=== PATIENT | female | born 2000 | race Caucasian/White ===

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

== ENCOUNTER 2018-04-19 15:14 | Emergency (ER) | payer OTHER ==
[~2018-04-19] VITALS: Ht 160 cm; Wt 90.7 kg
[~2018-04-19 15:14] MED LIST changes: +ZOFRAN4 MG PO
[2018-04-19 15:38] LABS: URINE BILIRUBIN NEGATIVE (Negative); URINE BLOOD 1+ (Negative); URINE CLARITY CLEAR; URINE COLOR YELLOW; URINE GLUCOSE-RANDOM NEGATIVE (Negative); URINE KETONES NEGATIVE (Negative); URINE LEUKOCYTES-REFLEX NEGATIVE (Negative); URINE NITRITE-REFLEX NEGATIVE (Negative); URINE PROTEIN NEGATIVE (Negative); URINE SPECIFIC GRAVITY >= 1.030 (1.005-1.030); URINE UROBILINOGEN 0.2 E.U./dl (0.2-1.0)
[2018-04-19 15:41] LABS: SQUAMOUS >10 Many /LPF (0-3); URINE WBC-REFLEX None Seen /HPF (0-5)
[2018-04-19 15:42] LABS: BACTERIA-REFLEX 1-9 Few /HPF (None Seen); CASTS None Seen /LPF (None Seen); CRYSTALS None Seen /LPF (None Seen); URINE RBC 3-10 Few /HPF (0-2)
[2018-04-19] MEDS ORDERED: NEXIUM40 MG PO (15:47)
[2018-04-19] MEDS ORDERED: BIRTH CONTROL PILL (15:47)
[2018-04-19 16:06] LABS: ABSOLUTE BASOPHILS 0.1 thou/uL (0.0-0.2); ABSOLUTE EOSINOPHILS 0.1 thou/uL (0.0-0.7); ABSOLUTE LYMPHOCYTES 1.5 thou/uL (0.8-5.3); ABSOLUTE MONOCYTES 0.8 thou/uL (0.0-1.2); ABSOLUTE NEUTROPHILS 8.2 thou/uL (1.6-8.1); BASOPHILS 0.5 %; EOSINOPHILS 0.7 %; HEMATOCRIT 36.1 % (37.0-47.0); HEMOGLOBIN 12.4 gm/dL (12.0-15.0); LYMPHOCYTES 14.3 %; MCHC 34.5 g/dL (28.0-37.0); MONOCYTES 7.2 %; MPV 7.6 fl. (7.2-11.1); NUCLEATED RBCS 0 /100WBC; PLATELET COUNT* 234 thou/uL (150-400); POLYS 77.3 %; RBC 4.15 mil/uL (4.20-5.00); RDW-CV 12.3 % (10.5-14.5); WBC 10.5 thou/uL (4.0-11.0)
[2018-04-19 16:13] LABS: CALCIUM 8.8 mg/dL (8.5-10.1); CREATININE 1.2 mg/dL (0.6-1.3); POTASSIUM 3.9 mmol/L (3.5-5.1)
[2018-04-19 16:17] LABS: ALBUMIN 3.4 g/dL (3.4-5.0); TOTAL BILIRUBIN 0.3 mg/dL (<0.1-1.0); TOTAL PROTEIN 7.1 g/dL (6.4-8.2)
[2018-04-19] MEDS ORDERED: ZOFRAN4 MG PO (17:54)
[2018-04-19] MEDS ORDERED: ACETAMINOPHEN-1 EAC1 PO (17:54)
[2018-04-19 18:32] VITALS: BP 131/80
== END 2018-04-19 18:33 | disposition home or self-care (01) ==
LOC: M.ERS 15:14
PROVIDERS: Nurse Practitioner Family
DX: N20.1 Calculus of ureter (principal); F32.9 Major depressive disorder, single episode, unspecified; F41.9 Anxiety disorder, unspecified; Z88.8 Allergy status to other drugs, medicaments and biological substances

== ENCOUNTER → 2018-11-28 | Outpatient (CLI) | payer OTHER ==
[~2018-11-28] MED LIST changes: +ACETAMINOPHEN-1 EAC1 PO; +BIRTH CONTROL PILL; +NEXIUM40 MG PO
== END ==
LOC: M.CT 13:05
DX: N20.0 Calculus of kidney (principal); N39.0 Urinary tract infection, site not specified; F32.9 Major depressive disorder, single episode, unspecified; F42.9 Obsessive-compulsive disorder, unspecified; Z68.35 Body mass index [BMI] 35.0-35.9, adult

== ENCOUNTER 2019-03-26 12:43 | Emergency (ER) | payer OTHER ==
[~2019-03-26] VITALS: Ht 160 cm; Wt 86.2 kg
[~2019-03-26 12:43] MED LIST changes: -LAMICTAL100 MG; +LAMICTAL100 MG PO; -PROZAC40 MG; +PROZAC40 MG PO; -UNICOMPLEX M TA1 TA1; +UNICOMPLEX M TA1 TA1 PO
[2019-03-26 13:03] LABS: URINE BLOOD 3+ (Negative); URINE CLARITY SL CLOUDY; URINE COLOR YELLOW; URINE GLUCOSE-RANDOM NEGATIVE (Negative); URINE KETONES NEGATIVE (Negative); URINE LEUKOCYTES-REFLEX NEGATIVE (Negative); URINE NITRITE-REFLEX NEGATIVE (Negative); URINE PROTEIN 1+ (Negative); URINE SPECIFIC GRAVITY 1.025 (1.005-1.030); URINE UROBILINOGEN 0.2 E.U./dl (0.2-1.0)
[2019-03-26 13:14] LABS: ICTOTEST (BILI CONFIRMATORY) Negative (Negative); URINE BILIRUBIN 1+ (Negative)
[2019-03-26 13:15] LABS: SQUAMOUS >10 Many /LPF (0-3); URINE WBC-REFLEX 0-5 Rare /HPF (0-5)
[2019-03-26 13:16] LABS: CASTS None Seen /LPF (None Seen); CRYSTALS None Seen /LPF (None Seen); MUCUS 4-6 Moderate strn/LPF (None Seen); URINE RBC >20 Many /HPF (0-2)
[2019-03-26 13:19] LABS: ABSOLUTE LYMPHOCYTES 0.9 thou/uL (0.8-5.3); ABSOLUTE MONOCYTES 0.5 thou/uL (0.0-1.2); ABSOLUTE NEUTROPHILS 7.1 thou/uL (1.6-8.1); BASOPHILS 0.2 %; EOSINOPHILS 0.5 %; HEMATOCRIT 36.7 % (37.0-47.0); HEMOGLOBIN 12.7 gm/dL (12.0-15.0); LYMPHOCYTES 10.1 %; MCH 29.5 pg (26.0-34.0); MCHC 34.8 g/dL (28.0-37.0); MCV 84.8 fL (80.0-100.0); MPV 7.3 fl. (7.2-11.1); NUCLEATED RBCS 0 /100WBC; PLATELET COUNT* 254 thou/uL (150-400); POLYS 83.2 %; RBC 4.32 mil/uL (4.20-5.00); RDW-CV 13.4 % (10.5-14.5); WBC 8.5 thou/uL (4.0-11.0)
[2019-03-26 13:25] LABS: CREATININE 0.9 mg/dL (0.6-1.3); POTASSIUM 3.9 mmol/L (3.5-5.1)
[2019-03-26 13:30] LABS: ALBUMIN 3.5 g/dL (3.4-5.0); TOTAL BILIRUBIN 0.4 mg/dL (<0.1-1.0); TOTAL PROTEIN 7.4 g/dL (6.4-8.2)
[2019-03-26] MEDS ORDERED: BENTYL 20 MG TA20 M1 PO (15:10)
[2019-03-26] MEDS ORDERED: ONDANSETRON HCL4 M2 PO (15:10)
[2019-03-26 15:24] VITALS: BP 128/77
== END 2019-03-26 15:25 | disposition home or self-care (01) ==
LOC: M.ERS 12:43
PROVIDERS: Family Medicine
DX: N20.0 Calculus of kidney (principal); R19.7 Diarrhea, unspecified; F41.9 Anxiety disorder, unspecified; Z86.2 Personal history of diseases of the blood and blood-forming organs and certain disorders involving the immune mechanism; Z88.1 Allergy status to other antibiotic agents

== ENCOUNTER 2019-03-27 11:16 | Inpatient (IN) | payer OTHER ==
[~2019-03-27] VITALS: Ht 160 cm; Wt 89.2 kg
--- NOTE | ~2019-03-27 | PROC ---
[address] [address] PROCEDURE REPORT Name: DASHA FLORES Room: [address] IN M.R.#: [id number] Admission: 03/27/19 Attend Phys: Rafy Villarreal MD Discharge: 03/30/19 Date of : 98 Report #: [id number] THIS REPORT FOR: //name// For GI report, please see the Provation report in Perceptive 7 content. By: [id number] Records Staff TIA /SKYLER
[~2019-03-27 11:16] MED LIST changes: +BENTYL 20 MG TA20 M1 PO
[2019-03-27 11:32] VITALS: BP 143/79
[2019-03-27 12:01] LABS: HEMATOCRIT 36.4 % (37.0-47.0); HEMOGLOBIN 12.5 gm/dL (12.0-15.0); MCH 29.2 pg (26.0-34.0); MCHC 34.5 g/dL (28.0-37.0); MCV 84.8 fL (80.0-100.0); MPV 7.6 fl. (7.2-11.1); NUCLEATED RBCS 0 /100WBC; PLATELET COUNT* 252 thou/uL (150-400); RBC 4.29 mil/uL (4.20-5.00); RDW-CV 13.6 % (10.5-14.5); WBC 11.2 thou/uL (4.0-11.0)
[2019-03-27 12:04] LABS: URINE BLOOD 3+ (Negative); URINE CLARITY CLEAR; URINE COLOR YELLOW; URINE GLUCOSE-RANDOM NEGATIVE (Negative); URINE KETONES TRACE (Negative); URINE LEUKOCYTES-REFLEX NEGATIVE (Negative); URINE NITRITE-REFLEX NEGATIVE (Negative); URINE PROTEIN 1+ (Negative); URINE SPECIFIC GRAVITY 1.025 (1.005-1.030); URINE UROBILINOGEN 0.2 E.U./dl (0.2-1.0)
[2019-03-27 12:05] LABS: URINE BILIRUBIN 1+ (Negative)
[2019-03-27 12:06] LABS: ICTOTEST (BILI CONFIRMATORY) Negative (Negative)
[2019-03-27 12:09] LABS: CALCIUM 8.7 mg/dL (8.5-10.1); CREATININE 0.9 mg/dL (0.6-1.3); POTASSIUM 3.7 mmol/L (3.5-5.1)
[2019-03-27 12:14] LABS: ALBUMIN 3.5 g/dL (3.4-5.0); TOTAL BILIRUBIN 0.3 mg/dL (<0.1-1.0); TOTAL PROTEIN 7.5 g/dL (6.4-8.2)
[2019-03-27 12:24] LABS: INFLUENZA A ANTIGEN Negative (Negative); INFLUENZA B ANTIGEN Negative (Negative)
[2019-03-27 12:27] LABS: ABSOLUTE LYMPHOCYTES 0.7 thou/uL (0.8-5.3); ABSOLUTE MONOCYTES 0.3 thou/uL (0.0-1.2); ABSOLUTE NEUTROPHILS 10.2 thou/uL (1.6-8.1); ANISOCYTOSIS 1+; PLATELET ESTIMATE ADEQUATE; POIKILOCYTOSIS 1+
[2019-03-27 12:31] LABS: BACTERIA-REFLEX 1-9 Few /HPF (None Seen); CASTS None Seen /LPF (None Seen); CRYSTALS None Seen /LPF (None Seen); MUCUS 0-3 Light strn/LPF (None Seen); SQUAMOUS 0-3 Few /LPF (0-3); URINE WBC-REFLEX 0-5 Rare /HPF (0-5)
[2019-03-27 15:56] VITALS: BP 129/81
[2019-03-27 16:10] VITALS: BP 115/47
[2019-03-27 19:45] VITALS: BP 124/64
[2019-03-28] VITALS: BP 128/69
[2019-03-28 04:03] LABS: ABSOLUTE LYMPHOCYTES 0.8 thou/uL (0.8-5.3); ABSOLUTE MONOCYTES 0.5 thou/uL (0.0-1.2); ABSOLUTE NEUTROPHILS 7.2 thou/uL (1.6-8.1); BASOPHILS 0.1 %; HEMATOCRIT 33.9 % (37.0-47.0); HEMOGLOBIN 11.4 gm/dL (12.0-15.0); LYMPHOCYTES 9.6 %; MCH 29.2 pg (26.0-34.0); MCHC 33.6 g/dL (28.0-37.0); MCV 86.7 fL (80.0-100.0); MONOCYTES 5.7 %; MPV 7.9 fl. (7.2-11.1); NUCLEATED RBCS 0 /100WBC; PLATELET COUNT* 204 thou/uL (150-400); POLYS 84.6 %; RBC 3.92 mil/uL (4.20-5.00); RDW-CV 13.7 % (10.5-14.5); WBC 8.6 thou/uL (4.0-11.0)
[2019-03-28 04:22] LABS: CALCIUM 8.4 mg/dL (8.5-10.1); CREATININE 0.8 mg/dL (0.6-1.3); POTASSIUM 3.9 mmol/L (3.5-5.1)
[2019-03-28 08:10] VITALS: BP 118/70
--- NOTE | 2019-03-28 15:29 | CON ---
[address] [address] CONSULTATION Name: DASHA FLORES Room: [address] IN M.R.#: [id number] Admission: 03/27/19 Attend Phys: Rafy Villarreal MD Discharge: Date of : 98 Report #: [id number] THIS REPORT FOR: //name// CC: Rafy Ferrer [facility] DICTATED BY: Doreen STEVENS DATE OF SERVICE: 03/28/2019 Please note at the time of this dictation, the patient was seen and physically examined by myself. REASON FOR CONSULTATION: Abdominal pain, diarrhea and abnormal CT. HISTORY OF PRESENT ILLNESS: This is a pleasant 18-year-old female who presented to the Emergency Room on Monday early on with some nausea and vomiting early on and some abdominal pain. She was sent home from the ER at that time. She states that her vomitus was more bile looking yellow-green at that particular time. She was not having significant abdominal pain as well. She later came back to the ER the following day because she was running a fever overnight up to 103 and taking medication to help with that. She was somewhat tachycardic and she had an elevated white count at 11.2. CT scan at that time showed some thickening in the ascending and transverse colon with some mild pericolonic fat stranding that was noted at that time. Prior to all of this, the patient was having some. She said a week prior to that, she went and saw her urologist because she has a followup regarding her kidney stones and he did a KUB and said she had a lot of constipation and recommended that she take some MiraLax. The patient states her normal bowel habits are every 2-3 days. She does not usually take anything and she will just eventually go. She states that they are hard and dry, however. She did take some MiraLax on the urologist advice and she states she took that for a couple of days and since then she has been going more regularly. The patient states her diet consists mainly of fast food. She is a college student. She does mention that she has had a lot of stress at home and at school that she stressed about her grades at the current time. Mother states she does have some anxiety issues, which may be playing a factor in all of this as well. The patient denies any bright red blood in her stool or in her vomitus early on. She states now she is having watery diarrhea since yesterday with no evidence of any bright red blood. ALLERGIES: CEPHALOSPORINS. MEDICATIONS: From home are some dicyclomine, Lamictal, Prozac and multivitamin [place] [address] CONSULTATION Name: DASHA FLORES Room: [address] IN M.R.#: [id number] Admission: 03/27/19 Attend Phys: Rafy Villarreal MD Discharge: Date of : 98 Report #: [id number] PAST MEDICAL HISTORY: OCD, depression, some anxiety. She has very menorrhagia noted, some anemia and history of kidney stones. PAST SURGICAL HISTORY: Negative. FAMILY HISTORY: Maternal great grandmother breast cancer. SOCIAL HISTORY: Denies any alcohol, tobacco or illegal drug use at the present time. REVIEW OF SYSTEMS: Twelve-point review of systems is essentially negative except what is mentioned in the HPI. PHYSICAL EXAMINATION: VITAL SIGNS: Temperature 38.3, pulse 105, respirations 18, blood pressure 128/69. HEART: Regular rate and rhythm. LUNGS: Clear. ABDOMEN: Soft, positive bowel sounds in all 4 quadrants with right-sided tenderness noted to palpation. LABORATORY DATA: Hemoglobin is 11.4, white count is 8.6, platelets 204. GFR is 91. LFTs are normal. CT showed stones in her gallbladder, but no wall thickening of the gallbladder noted. It did show thickening of the ascending and transverse colon with mild pericolonic fat stranding is noted. Ultrasound showed a normal CPD. IMPRESSION: 1. Abdominal pain. 2. Diarrhea. 3. Leukocytosis, resolved. 4. Abnormal CT showing left-sided wall thickening. 5. History of constipation. 6. Fever of unknown etiology. 7. Family history maternal great grandmother breast cancer. PLAN: 1. Colonoscopy tomorrow with Dr. Schilling. 2. ESR, CRP, ferritin, TIBC, and iron studies. 3. Further recommendations to be made once the procedure has been performed. Thank you for allowing us to participate in this patient's care. Please do not hesitate to call with any questions in regard to this consult. Patient presenting with abdominal pain found to have riht sided colitis. Colonoscopy tomorrow. [address] [address] CONSULTATION Name: DASHA FLORES Room: [address] IN M.R.#: [id number] Admission: 03/27/19 Attend Phys: Rafy Villarreal MD Discharge: Date of : 98 Report #: [id number] I agree with the above assessment and plan as outlined by Doreen Luciano <ELECTRONICALLY SIGNED> By: Simnoe Harley MD 03/28/19 1529 1215 [id number] Harley MD /nt
[2019-03-28 16:41] LABS: % SATURATION 5 % (20-39); IRON 12 ug/dL (50-175)
[2019-03-28 21:00] VITALS: BP 143/73
[2019-03-29 03:36] LABS: ABSOLUTE LYMPHOCYTES 1.8 thou/uL (0.8-5.3); ABSOLUTE MONOCYTES 0.7 thou/uL (0.0-1.2); ABSOLUTE NEUTROPHILS 4.1 thou/uL (1.6-8.1); BASOPHILS 0.3 %; EOSINOPHILS 0.7 %; HEMATOCRIT 35.1 % (37.0-47.0); HEMOGLOBIN 11.8 gm/dL (12.0-15.0); MCH 28.9 pg (26.0-34.0); MCHC 33.6 g/dL (28.0-37.0); MCV 86.1 fL (80.0-100.0); MONOCYTES 9.9 %; MPV 7.5 fl. (7.2-11.1); NUCLEATED RBCS 0 /100WBC; PLATELET COUNT* 224 thou/uL (150-400); POLYS 62.1 %; RBC 4.08 mil/uL (4.20-5.00); RDW-CV 13.7 % (10.5-14.5); WBC 6.6 thou/uL (4.0-11.0)
[2019-03-29 03:52] LABS: ALBUMIN 2.9 g/dL (3.4-5.0); CALCIUM 8.8 mg/dL (8.5-10.1); CREATININE 0.7 mg/dL (0.6-1.3); POTASSIUM 4.1 mmol/L (3.5-5.1); TOTAL BILIRUBIN 0.2 mg/dL (<0.1-1.0); TOTAL PROTEIN 6.8 g/dL (6.4-8.2)
--- NOTE | 2019-03-29 05:56 | CON ---
[address] [address] CONSULTATION Name: DASHA FLORES Room: [address] IN M.R.#: [id number] Admission: 03/27/19 Attend Phys: Rafy Villarreal MD Discharge: Date of : 98 Report #: [id number] THIS REPORT FOR: //name// CC: Rafy Ferrer DATE OF SERVICE: 03/28/2019 ATTENDING PHYSICIAN: Dr. Villarreal. REASON FOR EVALUATION: Abdominal pain, evidence of colitis, early sepsis. HISTORY OF PRESENT ILLNESS: Chart reviewed and patient examined. This is a 18-year-old with history of known renal lithiasis, who presented the day of admission on with high-grade fevers to 103, nausea, emesis, diarrhea, associated abdominal pain, most pronounced in the left lower quadrant, underwent serial imaging, initial CT not a clear evidence of process. A second CT done yesterday showed pancolitis, most pronounced the ascending and transverse site with some madai-mesenteric lymphadenopathy, gallstones without cholecystitis, bilateral small renal stones. Empirically placed on piperacillin and tazobactam. She is scheduled to undergo colonoscopy tomorrow. She has a degree of pain at this point, although it is better on symptomatic analgesics as well as low-grade temperature elevations. Hemodynamics are relatively stable at this point, mild dyspnea, is not encephalopathic. ALLERGIES: CEPHALOSPORINS. CURRENT MEDICATIONS: Include p.r.n. analgesics, antiemetics, Zosyn, lamotrigine, enoxaparin, dicyclomine, fluoxetine, pantoprazole. PAST MEDICAL HISTORY: As described above, history of renal stones, anxiety, depression, OCD, anemia. SOCIAL HISTORY: Nonsmoker, no ethanol, no illicit drug use. FAMILY HISTORY: Noncontributory. REVIEW OF SYSTEMS: Otherwise, unremarkable 10-point review of system exception of the above. PHYSICAL EXAMINATION: GENERAL: Appears reasonably well nourished. She is in moderate distress. VITAL SIGNS: Temperature max last 24 hours 102.9, more recently 99.7 earlier today, pulse 88, respirations 18, blood pressure 118/70. SKIN: Warm, dry, no rashes. HEENT: Normocephalic. [place] [address] CONSULTATION Name: DASHA FLORES Room: [address] IN [facility]#: [id number] Admission: 03/27/19 Attend Phys: Rafy Villarreal MD Discharge: Date of : 98 Report #: [id number] NECK: Supple. LUNGS: Somewhat diminished, overall clear. HEART: Regular. I do not appreciate a murmur. ABDOMEN: Mildly distended, soft. There is tenderness, probably left greater than right. GENITOURINARY: Deferred. RECTAL: Deferred. LABORATORY DATA: Initial urinalysis, 0-5 white cells. CBC: White count 8.5, H and H 12.7 and 36.7, platelets of 254. Electrolytes: Sodium 138, potassium 3.9, chloride 103, bicarbonate 26, anion gap of 9, BUN and creatinine 9 and 0.9, glucose of 92. LFTs unremarkable. Albumin of 3.5, total protein 7.4. Estimated GFR of 80. Serial CTs were noted. Most recent one noted mild circumferential wall thickening of the ascending and transverse colon suggestive of infectious or inflammatory colitis. Lipase of 99. Monospot was negative. Influenza antigen was negative. test was negative. ASSESSMENT: Colitis of uncertain etiology. Certainly, the pattern suggests likely an infectious cause. We will continue empiric antimicrobial therapy, Zosyn, gives this good colonic coverage. At this point, she is not overtly toxic. We will add incentive spirometer. We will await findings at the colonoscopy. She is scheduled tentatively for tomorrow. Discussed with the patient and her mother in detail. <ELECTRONICALLY SIGNED> By: Sarath Sequeira MD 03/29/19 0556 1518 1552Josusan Sequeira MD /nt
[2019-03-29 08:15] VITALS: BP 110/61
[2019-03-29 09:22] VITALS: BP 143/73
[2019-03-29 20:15] VITALS: BP 112/60
[2019-03-30 06:05] LABS: ABSOLUTE EOSINOPHILS 0.1 thou/uL (0.0-0.7); ABSOLUTE MONOCYTES 0.6 thou/uL (0.0-1.2); BASOPHILS 0.7 %; EOSINOPHILS 2.6 %; HEMATOCRIT 33.1 % (37.0-47.0); HEMOGLOBIN 11.3 gm/dL (12.0-15.0); LYMPHOCYTES 42.6 %; MCH 29.1 pg (26.0-34.0); MCV 85.8 fL (80.0-100.0); MONOCYTES 11.8 %; MPV 7.3 fl. (7.2-11.1); NUCLEATED RBCS 0 /100WBC; PLATELET COUNT* 264 thou/uL (150-400); POLYS 42.3 %; RBC 3.86 mil/uL (4.20-5.00); RDW-CV 13.7 % (10.5-14.5); WBC 4.8 thou/uL (4.0-11.0)
[2019-03-30 06:17] LABS: ALBUMIN 2.7 g/dL (3.4-5.0); CALCIUM 8.6 mg/dL (8.5-10.1); CREATININE 0.8 mg/dL (0.6-1.3); POTASSIUM 3.6 mmol/L (3.5-5.1)
[2019-03-30 06:31] LABS: TOTAL BILIRUBIN 0.1 mg/dL (<0.1-1.0); TOTAL PROTEIN 6.3 g/dL (6.4-8.2)
[2019-03-30 08:00] VITALS: BP 112/61
[2019-03-30 11:00] VITALS: BP 112/60
[2019-03-30] MEDS ORDERED: AUGMENTIN 875-1 EACH PO (11:26)
[2019-03-30] MEDS ORDERED: APRISO0.375 GM PO (12:45)
[2019-03-30] MEDS ORDERED: PROTONIX40 M2 PO (12:47)
[2019-03-31 02:12] LABS: HEPATITIS B SURFACE AG Negative (Negative)
--- NOTE | 2019-04-01 15:06 | PATH ---
[address] [address] PATHOLOGY RPT PROCEDURE Name: LAURA FLORES Room: [address] IN M.R.#: [id number] Admission: 03/27/19 Date of : 98 Discharge: 03/30/19 Report #: [id number] Path Case #: [id number] [facility] Accession Number: [id number] . 01 Material submitted: . PART A: cecum - CECAL BIOPSY PART B: ileum - TERMINAL ILEUM BIOPSIES PART C: colon - ASCENDING COLON BIOPSIES. Modifiers: ascending PART D: colon - TRANSVERSE COLON BIOPSIES. Modifiers: transverse PART E: colon - DESCENDING COLON BIOPSIES. Modifiers: descending PART F: sigmoid colon - SIGMOID COLON BIOPSIES PART G: rectum - RECTAL BIOPSIES . 01 Clinical history: . Abdominal pain, diarrhea, ulcerative colitis. . 02 Diagnosis: A, C, D, E, F, G: Cecal, ascending colon, tranverse colon, descending colon, sigmoid colon, and rectal biopsies: - Moderate active colitis, negative for granulomas, viral inclusions and dysplasia. See comment. . B. Terminal ileum biopsies: - Minimal active ileitis, negative for granulomas, viral inclusions and dysplasia. See comment. . (LOREN:deneen; 04/01/2019) S 04/01/2019 1143 Local . 02 Comment: All of the colonic mucosal biopsies show a similar active inflammatory pattern with easily identified cryptitis and neutrophils in the lamina propria and several of the biopsies (A, C, D, and E) also show prominent lymphoid aggregates (Peyer's patches). There is a conspicuous absence of basal lymphoplasmacytosis and at most only minimal crypt disarray, and although this could represent early onset of ulcerate colitis, these findings suggest another etiology including infectious colitis. No inflammatory pseudomembranes are seen and ischemic features are not apparent. (LOREN:[facility]; 04/01/2019) . 02 Electronically signed: . Rodríguez Grant MD, Pathologist NPI- [id number] . 01 Gross description: . A. Received in formalin labeled "Laura Flores, cecal biopsy" is a 0.6 x 0.4 x 0.1 cm aggregate of gamez-brown mucosa fragments. [place] [address] PATHOLOGY RPT PROCEDURE Name: LAURA FLORES NOELLE Room: [address] IN M.R.#: [id number] Admission: 03/27/19 Date of : 98 Discharge: 03/30/19 Report #: [id number] Path Case #: [id number] submitted in A1. . B. Received in formalin labeled "Tarman, Laura, terminal ileum biopsies" is a 0.5 x 0.4 x 0.1 cm singular fragment of gamez-brown mucosa. The specimen is submitted in B1. . C. Received in formalin labeled "Tarman, Laura, ascending colon biopsies" is a 1.1 x 0.4 x 0.1 cm aggregate of gamez-brown mucosa fragments. The specimen is submitted in C1. . D. Received in formalin labeled "Tarman, Laura, transverse colon biopsies" is a 0.7 x 0.5 x 0.1 cm aggregate of gamez-brown mucosa fragments. The specimen is submitted in D1. . E. Received in formalin labeled "Tarman, Laura, descending colon biopsies" is a 0.4 x 0.4 x 0.1 cm aggregate of gamez-brown mucosa fragments. The specimen is submitted in E1. . F. Received in formalin labeled "Tarman, Laura, sigmoid colon biopsies" is a 0.7 x 0.6 x 0.1 cm aggregate of gamez-brown mucosa fragments. The specimen is submitted in F1. . G. Received in formalin labeled "Tarman, Laura, rectal biopsies" is a 0.5 x 0.5 x 0.1 cm singular fragment of gamez-brown mucosa. The specimen is submitted in G1. ([facility]; 03/31/2019) [facility] 03/31/2019 1242 Local . 02 Pathologist provided ICD-10: K52.9 . 02 CPT . 824601, 783304, 495080, 505647, 366114, 090463, 683052 Specimen Comment: A courtesy copy of this report has been sent to [phone] Specimen Comment: [phone], Specimen Comment: Report sent to ,DR LUJAN / DR GARCIA Specimen Comment: A duplicate report has been generated due to demographic updates. Performed at: [address], [place], [place] [id number] MD Иван Esparza MD Phone: [phone] Performed at: 02 [facility] [address], [place], [place] [id number] MD Rodríguez Grant MD Phone: [phone]
== END 2019-03-30 13:37 | disposition home or self-care (01) | DRG 872 ==
LOC: M.ERS 11:16 → M.TBA-ER 14:40 → M.3W 14:40 → M.ORTHSURG 03-29 17:14
PROVIDERS: Family Medicine; Internal Medicine Gastroenterology; Nurse Practitioner Adult Health; Physician Assistant; ADMIT Internal Medicine
PROC: 0DJ08ZZ Inspection of Upper Intestinal Tract, Via Natural or Artificial Opening Endoscopic (ICD-10-PCS; principal; 2019-03-29)
PROC: 0DBB8ZX Excision of Ileum, Via Natural or Artificial Opening Endoscopic, Diagnostic (ICD-10-PCS; 2019-03-29)
PROC: 0DBE8ZX Excision of Large Intestine, Via Natural or Artificial Opening Endoscopic, Diagnostic (ICD-10-PCS; 2019-03-29)
DX: A41.9 Sepsis, unspecified organism (principal); A04.9 Bacterial intestinal infection, unspecified; K51.00 Ulcerative (chronic) pancolitis without complications; F32.9 Major depressive disorder, single episode, unspecified; F41.9 Anxiety disorder, unspecified; E66.9 Obesity, unspecified; D64.9 Anemia, unspecified; Z68.34 Body mass index [BMI] 34.0-34.9, adult; Z80.3 Family history of malignant neoplasm of breast; Z87.442 Personal history of urinary calculi; Z79.899 Other long term (current) drug therapy; Z88.8 Allergy status to other drugs, medicaments and biological substances

== ENCOUNTER 2019-04-15 11:51 | Emergency (ER) | payer OTHER ==
[~2019-04-15] VITALS: Ht 160 cm; Wt 81.7 kg
[~2019-04-15 11:51] MED LIST changes: +APRISO0.375 GM PO; +AUGMENTIN 875-1 EACH PO; +PROTONIX40 M2 PO
[2019-04-15 13:09] VITALS: BP 130/76
== END 2019-04-15 14:09 | disposition left against medical advice (07) ==
LOC: M.ERS 11:51
DX: Z53.21 Procedure and treatment not carried out due to patient leaving prior to being seen by health care provider (principal)

== ENCOUNTER 2019-05-03 02:49 | Inpatient (IN) | payer OTHER ==
[~2019-05-03] VITALS: Ht 160 cm; Wt 84.4 kg
[2019-05-03 02:58] VITALS: BP 148/87
[2019-05-03 03:44] LABS: URINE BILIRUBIN NEGATIVE (Negative); URINE BLOOD 1+ (Negative); URINE CLARITY CLEAR; URINE COLOR DARK YELLOW; URINE GLUCOSE-RANDOM NEGATIVE (Negative); URINE KETONES NEGATIVE (Negative); URINE LEUKOCYTES-REFLEX NEGATIVE (Negative); URINE NITRITE-REFLEX NEGATIVE (Negative); URINE PROTEIN NEGATIVE (Negative); URINE SPECIFIC GRAVITY >= 1.030 (1.005-1.030); URINE UROBILINOGEN 0.2 E.U./dl (0.2-1.0)
[2019-05-03 03:59] LABS: ABSOLUTE BASOPHILS 0.1 thou/uL (0.0-0.2); ABSOLUTE EOSINOPHILS 0.1 thou/uL (0.0-0.7); ABSOLUTE LYMPHOCYTES 2.9 thou/uL (0.8-5.3); ABSOLUTE MONOCYTES 0.6 thou/uL (0.0-1.2); BASOPHILS 1.1 %; EOSINOPHILS 1.9 %; HEMATOCRIT 35.1 % (37.0-47.0); HEMOGLOBIN 12.2 gm/dL (12.0-15.0); LYMPHOCYTES 37.5 %; MCH 29.3 pg (26.0-34.0); MCHC 34.7 g/dL (28.0-37.0); MCV 84.5 fL (80.0-100.0); MONOCYTES 8.1 %; MPV 7.8 fl. (7.2-11.1); NUCLEATED RBCS 0 /100WBC; PLATELET COUNT* 319 thou/uL (150-400); POLYS 51.4 %; RBC 4.15 mil/uL (4.20-5.00); RDW-CV 14.1 % (10.5-14.5); WBC 7.8 thou/uL (4.0-11.0)
[2019-05-03 04:50] LABS: CALCIUM 8.5 mg/dL (8.5-10.1); CREATININE 0.8 mg/dL (0.6-1.3); POTASSIUM 3.3 mmol/L (3.5-5.1)
[2019-05-03 04:53] LABS: BACTERIA-REFLEX >30 Many /HPF (None Seen); CASTS None Seen /LPF (None Seen); MUCUS 4-6 Moderate strn/LPF (None Seen); SQUAMOUS 0-3 Few /LPF (0-3); URINE WBC-REFLEX 6-15 Few /HPF (0-5)
[2019-05-03 04:54] LABS: CRYSTALS None Seen /LPF (None Seen)
[2019-05-03 04:55] LABS: ALBUMIN 3.3 g/dL (3.4-5.0); TOTAL BILIRUBIN 0.2 mg/dL (<0.1-1.0); TOTAL PROTEIN 6.8 g/dL (6.4-8.2)
[2019-05-03 07:46] VITALS: BP 113/61
[2019-05-03 08:00] VITALS: BP 116/70
[2019-05-03 20:04] VITALS: BP 119/74
[2019-05-04 01:30] VITALS: BP 119/74
[2019-05-04 04:35] LABS: HEMATOCRIT 38.4 % (37.0-47.0); HEMOGLOBIN 12.9 gm/dL (12.0-15.0); MCH 28.9 pg (26.0-34.0); MCHC 33.5 g/dL (28.0-37.0); MCV 86.2 fL (80.0-100.0); MPV 7.7 fl. (7.2-11.1); RBC 4.45 mil/uL (4.20-5.00); RDW-CV 14.5 % (10.5-14.5); WBC 7.4 thou/uL (4.0-11.0)
[2019-05-04 05:08] LABS: ALBUMIN 3.3 g/dL (3.4-5.0); CALCIUM 8.8 mg/dL (8.5-10.1); CREATININE 0.7 mg/dL (0.6-1.3); MAGNESIUM 1.9 mg/dL (1.8-2.4); PHOSPHORUS* 4.1 mg/dL (2.5-4.9); TOTAL BILIRUBIN 0.3 mg/dL (<0.1-1.0)
[2019-05-04 05:13] LABS: POTASSIUM 4.9 mmol/L (3.5-5.1)
[2019-05-04 07:48] VITALS: BP 120/70
[2019-05-04 19:44] VITALS: BP 116/68
[2019-05-05 04:00] VITALS: BP 133/85
[2019-05-05 07:42] VITALS: BP 118/72
[2019-05-05 13:33] VITALS: BP 118/72
[2019-05-05] MEDS ORDERED: OXYCODONE HCL 55 MG PO (13:42)
--- NOTE | 2019-05-07 17:06 | PATH ---
[address] [address] PATHOLOGY RPT PROCEDURE Name: LAURA FLORES Room: [address] IN M.R.#: [id number] Admission: 05/03/19 Date of : 98 Discharge: 05/05/19 Report #: [id number] Path Case #: [id number] [facility] Accession Number: [id number] . 01 Material submitted: . gallbladder - GALLBLADDER . 01 Clinical history: . Chronic cholecystitis, symptomatic cholelithiasis . 02 Diagnosis: Gallbladder: - Chronic cholecystitis with cholesterolosis and cholelithiasis. . (LOREN:mml; 05/07/2019) QL 05/07/2019 1635 Local . 02 Electronically signed: . Rodríguez Grant MD, Pathologist NPI- [id number] . 01 Gross description: . The specimen is received in formalin labeled "Tarman, Laura, gallbladder" and consists of an intact green chauhan smooth shiny gallbladder measuring 8.2 x 2.5 x 2.3 cm. The margin is inked black. Opening reveals a lumen filled with tenacious green bile and 2 mulberry yellow calculi measuring 1.1 cm each. The mucosa is green and velvety with yellow stippling and an average wall thickness of 0.1 cm. No masses are identified. Doctor Of Naprapathic Medicine sections are submitted in A1. (SDY; 05/06/2019) SYU/SYU 05/06/[address] [place] [address] . 02 Pathologist provided ICD-10: K80.10, K82.4 . 02 CPT . 572806 Specimen Comment: A courtesy copy of this report has been sent to [phone] Specimen Comment: Report sent to Performed at: [address], [place], [place] [id number] MD Иван Esparza MD Phone: [phone] Performed at: [address] [address] [place] [id number] MD Rodríguez Grant MD Phone: [phone]
--- NOTE | 2019-05-14 16:54 | OP ---
[address] [address] OPERATIVE REPORT Name: DASHA FLORES Room: [address] IN M.R.#: [id number] Admission: 05/03/19 Attend Phys: Lianna Hilton MD Discharge: 05/05/19 Date of : 98 Report #: [id number] THIS REPORT FOR: //name// CC: Maria Hilton DICTATED BY: Jared Guevara DO DATE OF SERVICE: 05/04/2019 PREOPERATIVE DIAGNOSIS: Chronic cholecystitis and symptomatic cholelithiasis. POSTOPERATIVE DIAGNOSIS: Chronic cholecystitis and symptomatic cholelithiasis. PROCEDURE PERFORMED: Laparoscopic cholecystectomy. SURGEON: Choco Traore DO CREEL SELECTOR: Jared Guevara, PGY3 and Hipolito, MS3 SPECIMEN: Gallbladder. ESTIMATED BLOOD LOSS: 5 mL. COMPLICATIONS: None. FINDINGS: Chronic cholecystitis with a thickened gallbladder wall, multiple gallstones within the gallbladder. HISTORY OF PRESENT ILLNESS: The patient is a 18-year-old female who presented to the hospital with complaints of upper abdominal pain radiating to her back. She has had intermittent episodes of abdominal pain, nausea and diarrhea. She has had some symptoms associated with fatty meals. Imaging revealed gallstones, which appeared to be impacted into the gallbladder neck and some distention and we discussed that this will likely represents symptomatic cholelithiasis. Risks, benefits, alternatives of laparoscopic cholecystectomy were discussed at length and she agreed to proceed with surgery. DESCRIPTION OF PROCEDURE: After informed consent was obtained, the patient was taken to the operating room and placed in the supine position. SCDs were applied to bilateral lower extremities. A safety belt was placed across the patient's waist, antibiotics were given for surgical prophylaxis. At this point, the patient was intubated and general anesthesia was administered without any complication. The patient was prepped and draped in the standard sterile fashion. Timeout was performed to confirm [place] [address] OPERATIVE REPORT Name: DASHA FLORES Room: [address] IN [facility].#: [id number] Admission: 05/03/19 Attend Phys: Lianna Hilton MD Discharge: 05/05/19 Date of : 98 Report #: [id number] Infraumbilical transverse incision was made using an 11 blade scalpel. Electrocautery was used for hemostasis and to dissect down to the level of fascia. Once fascia was encountered, it was grasped between 2 Kochers and elevated. Fascia was scored. Hemostat was used to bluntly enter the peritoneum. Two stitches of 0 Vicryl placed on either side of the fascia. A 10 mm Sandip trocar was inserted in the abdomen without any issue. Insufflation was initiated. Camera was inserted into the abdomen. Intraabdominal contents were inspected. The patient was placed in reverse Trendelenburg, rotated towards the left. The gallbladder could be seen under the edge of the liver. Another 5 mm trocar was placed subxiphoid under direct visualization. The gallbladder was grasped and elevated. There were no significant adhesions; however, the wall of the gallbladder did appear to be slightly thickened consistent with chronic cholecystitis. There were multiple gallstones that could be felt within the gallbladder. Two more 5 mm trocars were placed in the right upper quadrant under direct visualization. Gallbladder grasped and elevated. Attention was turned towards isolating the cystic artery and cystic duct. Electrocautery was used to score the visceral peritoneum. Dissection was carried laterally up along the edge of the liver and then again medially. At this point, [place] dissector was used to bluntly circumferentially dissect out the cystic duct. Once this was isolated and could be seen going up into the gallbladder. Attention was turned towards the cystic artery. The same process was performed with the [place] dissector to circumferentially dissect out the cystic artery. Once both structures were isolated and could be seen going up into the gallbladder. Critical view of safety was obtained. Both structures were clipped 3 times proximally and once distally. Both structures were then cut using endoshears between the proximal and distal endoclips. There was a second artery that appeared to be coursing just underneath the plane of dissection of her gallbladder into the liver and this was carefully avoided. Electrocautery was used to dissect the gallbladder off of the bed of the liver. The gallbladder was then placed in laparoscopic EndoCatch bag. Hemostasis was ensured with electrocautery. Once hemostasis was completely obtained our clips were inspected. There was no evidence of bile leak or bleeding. At this point, insufflation was let down. All trocars were removed under direct visualization. Gallbladder and its contents were removed from the infraumbilical trocar site. The gallbladder was palpated. There were two large stones within the gallbladder. The infraumbilical fascia was then closed with 1 stitch of 0 Vicryl in a [id number] fashion. All skin incisions were closed with 4-0 Monocryl in subcuticular fashion. Sterile dressings applied. All counts were correct at the end of the case. The patient was awoken from general anesthesia and transferred to PACU in stable condition. EBL: 5cc [place] [address] OPERATIVE REPORT Name: DASHA FLORES Room: [address] IN [facility]#: [id number] Admission: 05/03/19 Attend Phys: Lianna Hilton MD Discharge: 05/05/19 Date of : 98 Report #: [id number] Anesthesia: General ETT Specimen: GB Drains: none <ELECTRONICALLY SIGNED> By: Choco Traore DO 05/14/19 1654 1412 1512Choco Traore DO /nt
== END 2019-05-05 14:23 | disposition home or self-care (01) | DRG 418 ==
LOC: M.ERS 02:49 → M.TBA-ER 06:53 → M.ORTHSURG 06:53
PROVIDERS: Emergency Medicine; ADMIT Internal Medicine
PROC: 0FT44ZZ Resection of Gallbladder, Percutaneous Endoscopic Approach (ICD-10-PCS; principal; 2019-05-04)
DX: K80.10 Calculus of gallbladder with chronic cholecystitis without obstruction (principal); E44.1 Mild protein-calorie malnutrition; R82.71 Bacteriuria; K52.9 Noninfective gastroenteritis and colitis, unspecified; N20.0 Calculus of kidney; E66.9 Obesity, unspecified; F42.9 Obsessive-compulsive disorder, unspecified; E87.6 Hypokalemia; F32.9 Major depressive disorder, single episode, unspecified; F41.9 Anxiety disorder, unspecified; Z87.442 Personal history of urinary calculi; Z79.899 Other long term (current) drug therapy; Z88.1 Allergy status to other antibiotic agents; Z84.1 Family history of disorders of kidney and ureter; Z68.33 Body mass index [BMI] 33.0-33.9, adult

== ENCOUNTER 2019-05-11 14:20 | Emergency (ER) | payer OTHER ==
[~2019-05-11] VITALS: Ht 160 cm; Wt 83.5 kg
[~2019-05-11 14:20] MED LIST changes: +OXYCODONE HCL 55 MG PO
[2019-05-11 15:08] LABS: HEMATOCRIT 39.4 % (37.0-47.0); HEMOGLOBIN 13.2 gm/dL (12.0-15.0); MCH 28.5 pg (26.0-34.0); MCHC 33.5 g/dL (28.0-37.0); MCV 85.2 fL (80.0-100.0); MPV 7.5 fl. (7.2-11.1); NUCLEATED RBCS 0 /100WBC; PLATELET COUNT* 293 thou/uL (150-400); RBC 4.63 mil/uL (4.20-5.00); RDW-CV 13.6 % (10.5-14.5); WBC 16.2 thou/uL (4.0-11.0)
[2019-05-11 15:09] LABS: URINE BLOOD 1+ (Negative); URINE CLARITY CLEAR; URINE COLOR YELLOW; URINE GLUCOSE-RANDOM NEGATIVE (Negative); URINE KETONES 2+ (Negative); URINE LEUKOCYTES-REFLEX NEGATIVE (Negative); URINE NITRITE-REFLEX NEGATIVE (Negative); URINE PROTEIN TRACE (Negative); URINE SPECIFIC GRAVITY >= 1.030 (1.005-1.030); URINE UROBILINOGEN 0.2 E.U./dl (0.2-1.0)
[2019-05-11 15:11] LABS: ICTOTEST (BILI CONFIRMATORY) Negative (Negative); URINE BILIRUBIN 1+ (Negative)
[2019-05-11 15:21] LABS: HYALINE CASTS 0-3 Few /LPF (None Seen); MUCUS >6 Heavy strn/LPF (None Seen); SQUAMOUS >10 Many /LPF (0-3)
[2019-05-11 15:23] LABS: BACTERIA-REFLEX 1-9 Few /HPF (None Seen); CRYSTALS None Seen /LPF (None Seen); URINE RBC 0-2 Rare /HPF (0-2); URINE WBC-REFLEX 0-5 Rare /HPF (0-5)
[2019-05-11 15:24] LABS: CREATININE 1.1 mg/dL (0.6-1.3); POTASSIUM 3.2 mmol/L (3.5-5.1)
[2019-05-11 15:29] LABS: ALBUMIN 3.7 g/dL (3.4-5.0); TOTAL BILIRUBIN 0.4 mg/dL (<0.1-1.0); TOTAL PROTEIN 8.2 g/dL (6.4-8.2)
[2019-05-11 15:53] LABS: ABSOLUTE BASOPHILS 0.3 thou/uL (0.0-0.2); ABSOLUTE EOSINOPHILS 0.2 thou/uL (0.0-0.7); ABSOLUTE LYMPHOCYTES 1.8 thou/uL (0.8-5.3); ABSOLUTE MONOCYTES 0.6 thou/uL (0.0-1.2); ABSOLUTE NEUTROPHILS 13.3 thou/uL (1.6-8.1); PLATELET ESTIMATE ADEQUATE
[2019-05-11 16:51] VITALS: BP 112/80
== END 2019-05-11 16:52 | disposition home or self-care (01) ==
LOC: M.ERS 14:20
PROVIDERS: Family Medicine
DX: R11.2 Nausea with vomiting, unspecified (principal); R19.7 Diarrhea, unspecified; Z88.1 Allergy status to other antibiotic agents; Z87.442 Personal history of urinary calculi; Z86.2 Personal history of diseases of the blood and blood-forming organs and certain disorders involving the immune mechanism

== ENCOUNTER → 2019-05-21 | Outpatient (CLI) | payer OTHER | LOC: M.LAB 12:26 | DX: K51.90 Ulcerative colitis, unspecified, without complications (principal) ==